=== PATIENT | male | born 1945 | race American Indian/Alaskan Native ===

== ENCOUNTER 2022-04-20 19:35 | Inpatient (IN) | payer MEDICARE ==
[2022-04-20 20:28] LABS: Basophils # (Auto) 0.1 K/mm3 (0.0-0.1); Basophils % (Auto) 1.7 % (0.0-1.8); Eosinophils # (Auto) 0.1 K/mm3 (0.0-0.4); Eosinophils % (Auto) 1.1 % (0.0-4.3); Hematocrit 34.4 % (35.5-45.6); Hemoglobin 11.7 gm/dl (11.8-15.2); Lymphocytes # (Auto) 0.6 K/mm3 (1.2-5.4); Lymphocytes % (Auto) 7.3 % (13.4-35.0); Mean Corpuscular HGB Conc 34 % (32-34); Mean Corpuscular Volume 109 fl (84-94); Monocytes # (Auto) 0.5 K/mm3 (0.0-0.8); Monocytes % (Auto) 5.6 % (0.0-7.3); Red Blood Count 3.17 M/mm3 (3.65-5.03); Red Cell Distribution Width 18.2 % (13.2-15.2)
--- NOTE | 2022-04-20 20:35 | XRay Report ---
CHEST 2 VIEWS INDICATION / CLINICAL INFORMATION: Chest Pain. COMPARISON: None available. FINDINGS: SUPPORT DEVICES: None. HEART / MEDIASTINUM: Cardiomegaly with normal pulmonary vascularity LUNGS / PLEURA: No significant pulmonary or pleural abnormality. No pneumothorax. ADDITIONAL FINDINGS: No significant additional findings. IMPRESSION: 1. Cardiomegaly without CHF Signer Name: Olivier Rivera MD Signed: 04/20/2022 8:31 PM Workstation Name: [id number]
[2022-04-20 20:44] LABS: Albumin 3.6 g/dL (3.9-5); Calcium 9.3 mg/dL (8.4-10.2)
[2022-04-20 20:49] LABS: Platelet Count 94 K/mm3 (140-440)
--- NOTE | 2022-04-21 13:45 | Emergency Department Report ---
ED Chest Pain HPI - General Chief Complaint: Chest Pain Stated Complaint: CHEST PAIN/SOB Source: patient Mode of arrival: Ambulatory Limitations: No Limitations - History of Present Illness Initial Comments: 77-year-old male with a history of atrial fib, hypertension, diabetes, COPD, chronic hiccups, presents to the emergency department with chest pain shortness of breath. " I feel like I am drowning in my chest" patient reports symptom has been going on for 1 week progressively worse. Describes sharp pain across his chest that radiates to his left arm causing numbness and tingling in his left arm. Reports short of breath even with the mildest activities such as tying his shoes. His symptoms associated with productive cough, swelling of his lower extremity headache, dizziness, states sometimes he feels like he is off balance. He denies wheezing, denies any recent travel or sick contacts. Symptoms has been so worse that has been "making him very afraid". His quality assurance analyst is at [facility] Doctor "los" Complaint: chest pain -: Gradual Onset: during exertion Pain Location: substernal, left chest, right chest Pain Radiation: LUE Severity: moderate Severity scale (0 -10): 5 Quality: tightness Consistency: intermittent Improves With: nothing Worsens With: exertion, movement Other Symptoms: cough, leg swelling, palpitations Treatments Prior to Arrival: none - Related Data Home Medications Medication Instructions Recorded Confirmed Last Taken Lantus Solostar 15 units SUB-Q PRN PRN 12/24/15 04/22/22 12/27/15 22:00 Lisinopril/Hydrochlorothiazide 20 mg PO BID 12/24/15 04/22/22 12/28/15 06:00 Methotrexate 2.5 mg PO QWEEK 12/24/15 04/22/22 12/27/15 09:00 NexIUM 22.3 mg PO DAILY 12/24/15 04/22/22 12/27/15 09:00 Pioglitazone 15 mg PO DAILY 12/24/15 04/22/22 12/27/15 09:00 Simvastatin 40 mg PO DAILY 12/24/15 04/22/22 12/27/15 09:00 chlorproMAZINE 25 mg PO TID 12/24/15 04/22/22 Unknown metFORMIN 1,000 mg PO BID 12/24/15 04/22/22 12/27/15 09:00 Aspirin EC [Halfprin EC] 81 mg PO QDAY 12/26/15 04/22/22 12/24/15 Previous Rx's Medication Instructions Recorded Last Taken Type Nystatin [Nystatin SUSP] 10 ml PO QID #250 ml 12/28/15 Unknown Rx Allergies Allergy/AdvReac Type Severity Reaction Status Date / Time Penicillins Allergy Severe Anaphylaxis Verified 04/22/22 16:14 Heart Score - HEART Score History: Moderately suspicious EKG: Non-specific Age: > 65 Risk factors: > 3 risk factors or hx of atherosclerotic disease Troponin: < normal limit HEART Score: 6 - EKG Read Time Time EKG Completed: 20:04 EKG Read Time: 20:06 - Critical Actions Critical Actions: 4-6 pts:12-16.6% risk of adverse cardiac event. Should be admitted ED Review of Systems ROS: Stated complaint: CHEST PAIN/SOB Other details as noted in HPI Constitutional: denies: no symptoms reported Respiratory: cough, orthopnea, shortness of breath, SOB with exertion, SOB at rest. denies: wheezing Cardiovascular: chest pain, dyspnea on exertion, edema Genitourinary: denies: as per HPI Neurological: headache, numbness ED Past Medical Hx - Past Medical History Previous Medical History?: Yes Hx Hypertension: Yes (CONTROLLED) Hx Heart Attack/AMI: No Hx Diabetes: Yes Hx GERD: Yes Hx Renal Disease: No Hx Asthma: No Hx HIV: No - Surgical History Past Surgical History?: No - Social History Smoking Status: Unknown if ever smoked - Medications Home Medications: Home Medications Medication Instructions Recorded Confirmed Last Taken Type Lantus Solostar 15 units SUB-Q PRN PRN 12/24/15 04/22/22 12/27/15 22:00 History Lisinopril/Hydrochlorothiazide 20 mg PO BID 12/24/15 04/22/22 12/28/15 06:00 History Methotrexate 2.5 mg PO QWEEK 12/24/15 04/22/22 12/27/15 09:00 History NexIUM 22.3 mg PO DAILY 12/24/15 04/22/22 12/27/15 09:00 History Pioglitazone 15 mg PO DAILY 12/24/15 04/22/22 12/27/15 09:00 History Simvastatin 40 mg PO DAILY 12/24/15 04/22/22 12/27/15 09:00 History chlorproMAZINE 25 mg PO TID 12/24/15 04/22/22 Unknown History metFORMIN 1,000 mg PO BID 12/24/15 04/22/22 12/27/15 09:00 History Aspirin EC [Halfprin EC] 81 mg PO QDAY 12/26/15 04/22/22 12/24/15 History Nystatin [Nystatin SUSP] 10 ml PO QID #250 ml 12/28/15 04/22/22 Unknown Rx ED Physical Exam - General Limitations: No Limitations General appearance: alert, in no apparent distress - Eye Eye exam: Present: normal appearance - ENT ENT exam: Present: normal exam, mucous membranes moist - Neck Neck exam: Present: normal inspection - Respiratory Respiratory exam: Present: decreased breath sounds. Absent: wheezes, chest wall tenderness - GI/Abdominal GI/Abdominal exam: Present: distended. Absent: tenderness - Extremities Exam Extremities exam: Present: tenderness, pedal edema - Neurological Exam Neurological exam: Present: alert, oriented X3 - Psychiatric Psychiatric exam: Present: normal affect, normal mood - Skin Skin exam: Present: warm, dry, intact ED Course Vital Signs 04/20/22 04/20/22 04/21/22 19:38 19:40 05:26 Temperature 100.0 F H 100 F H Pulse Rate 68 68 67 Respiratory 18 18 18 Rate Blood Pressure 180/85 Blood Pressure 180/85 144/70 [Right] O2 Sat by Pulse 95 93 95 Oximetry 04/21/22 04/21/22 04/21/22 23:03 23:21 23:37 Temperature 98.4 F Pulse Rate 71 66 64 Respiratory 16 20 Rate Blood Pressure 174/85 Blood Pressure 142/82 [Right] O2 Sat by Pulse 98 94 Oximetry 04/21/22 04/22/22 04/22/22 23:45 03:44 07:00 Temperature 98.3 F Pulse Rate 71 76 Respiratory 18 Rate Blood Pressure 155/80 Blood Pressure [Right] O2 Sat by Pulse 98 93 Oximetry 04/22/22 08:11 Temperature 99.0 F Pulse Rate 65 Respiratory 18 Rate Blood Pressure 153/84 Blood Pressure [Right] O2 Sat by Pulse 94 Oximetry - Reevaluation(s) Reevaluation #1: 04/21/22 14:35- Spoke with the hospitalist Dr. Fuller, "accept patient accepted" [id number] spoke with the quality assurance analyst Dr. Francois who would call Dr. Keys who is on-call for patient's quality assurance analyst with [facility] ED Medical Decision Making - Lab Data Result diagrams: 04/22/22 07:58 04/22/22 07:58 - EKG Data -: EKG Interpreted by Me EKG shows normal: sinus rhythm Rate: normal (68) - EKG Data When compared to previous EKG there are: no significant change Interpretation: other (Prolonged NE interval left bundle branch block) - Medical Decision Making 77-year-old male with a history of atrial fib, hypertension, diabetes, COPD, chronic hiccups, presents to the emergency department with chest pain shortness of breath. " I feel like I am drowning in my chest" patient reports symptom has been going on for 1 week progressively worse. Describes sharp pain across his chest that radiates to his left arm causing numbness and tingling in his left arm. Reports short of breath even with the mildest activities such as tying his shoes. His serial troponin has been negative, however heart score is of greater than 4, Based on patient's history. I consulted his quality assurance analyst and spoke to Dr. Keys who was on-call, recommended admit patient. Spoke with the hospitalist who accepted patient. I also updated patient's regarding the plan for admission and he is very pleased. Critical care attestation.: If time is entered above; I have spent that time in minutes in the direct care of this critically ill patient, excluding procedure time. ED Disposition Clinical Impression: Intractable hiccoughs, Chest pain, Shortness of breath, MICHAEL (acute kidney injury), Diabetes mellitus type 2 in obese Disposition: ADMITTED INPATIENT Is pt being admited?: Yes Does the pt Need Aspirin: No Condition: Stable
--- NOTE | 2022-04-21 20:12 | History and Physical Report ---
History of Present Illness Date of examination: 04/21/22 Date of admission: 04/21/2025 Chief complaint: Chest pain and shortness of breath for 1 week History of present illness: 77-year-old male with history of atrial fibrillation hypertension diabetes COPD comes to the emergency department because of shortness of breath and chest pain. Shortness of breath for 1 week. Chest pain off and on for 1 week. Orthopnea present. No fever or chills. Patient also has a history of rheumatoid arthritis hypertension hyperlipidemia and type 2 diabetes. Exercise is a exace rbating factor. Rest is a relieving factor. Heart Score - HEART Score History: Moderately suspicious Age: > 65 Risk factors: > 3 risk factors or hx of atherosclerotic disease Troponin: < normal limit - Critical Actions Critical Actions: 4-6 pts:12-16.6% risk of adverse cardiac event. Should be admitted - Past Medical History --Previous Medical History?: Yes --Hypertension: Yes (CONTROLLED) --Diabetes: Yes --GERD: Yes - Surgical History --Past Surgical History?: No - Social History --Smoking Status: Unknown if ever smoked - Medications Home Medications: Home Medications Medication Instructions Recorded Confirmed Last Taken Type Lantus Solostar 15 units SUB-Q PRN PRN 12/24/15 12/28/15 12/27/15 22:00 History Lisinopril/Hydrochlorothiazide 20 mg PO BID 12/24/15 12/28/15 12/28/15 06:00 History Methotrexate 2.5 mg PO QWEEK 12/24/15 12/28/15 12/27/15 09:00 History NexIUM 22.3 mg PO DAILY 12/24/15 12/28/15 12/27/15 09:00 History Pioglitazone 15 mg PO DAILY 12/24/15 12/28/15 12/27/15 09:00 History Simvastatin 40 mg PO DAILY 12/24/15 12/28/15 12/27/15 09:00 History chlorproMAZINE 25 mg PO TID 12/24/15 12/24/15 Unknown History metFORMIN 1,000 mg PO BID 12/24/15 12/28/15 12/27/15 09:00 History Aspirin EC [Halfprin EC] 81 mg PO QDAY 12/26/15 12/26/15 12/24/15 History Nystatin [Nystatin SUSP] 10 ml PO QID #250 ml 12/28/15 Unknown Rx Review of Systems ROS: Stated complaint: CHEST PAIN/SOB Other details as noted in HPI Constitutional: denies: no symptoms reported Respiratory: cough, orthopnea, shortness of breath, SOB with exertion, SOB at rest. denies: wheezing Cardiovascular: chest pain, dyspnea on exertion, edema Genitourinary: denies: as per HPI Neurological: headache, numbness Medications and Allergies Allergies Allergy/AdvReac Type Severity Reaction Status Date / Time Penicillins AdvReac Severe Anaphylaxis Verified 12/24/15 12:16 Home Medications Medication Instructions Recorded Confirmed Last Taken Type Lantus Solostar 15 units SUB-Q PRN PRN 12/24/15 12/28/15 12/27/15 22:00 History Lisinopril/Hydrochlorothiazide 20 mg PO BID 12/24/15 12/28/15 12/28/15 06:00 History Methotrexate 2.5 mg PO QWEEK 12/24/15 12/28/15 12/27/15 09:00 History NexIUM 22.3 mg PO DAILY 12/24/15 12/28/15 12/27/15 09:00 History Pioglitazone 15 mg PO DAILY 12/24/15 12/28/15 12/27/15 09:00 History Simvastatin 40 mg PO DAILY 12/24/15 12/28/15 12/27/15 09:00 History chlorproMAZINE 25 mg PO TID 12/24/15 12/24/15 Unknown History metFORMIN 1,000 mg PO BID 12/24/15 12/28/15 12/27/15 09:00 History Aspirin EC [Halfprin EC] 81 mg PO QDAY 12/26/15 12/26/15 12/24/15 History Nystatin [Nystatin SUSP] 10 ml PO QID #250 ml 12/28/15 Unknown Rx Exam - Constitutional Vitals: Temp Pulse Resp BP Pulse Ox 100 F H 67 18 144/70 95 04/20/22 19:40 04/21/22 05:26 04/21/22 05:26 04/21/22 05:26 04/21/22 05:26 General appearance: Present: no acute distress, well-nourished - EENT Eyes: Present: PERRL ENT: hearing intact, clear oral mucosa - Neck Neck: Present: supple, normal ROM - Respiratory Respiratory effort: normal Respiratory: bilateral: CTA, rales (Scattered) - Cardiovascular Heart rate: 78 Rhythm: regular Heart Sounds: Present: S1 & S2. Absent: rub, click - Extremities Extremities: pulses symmetrical, No edema Peripheral Pulses: within normal limits - Abdominal General gastrointestinal: Present: soft, non-tender, non-distended, normal bowel sounds Male genitourinary: Present: normal - Integumentary Integumentary: Present: clear, warm, dry - Musculoskeletal Musculoskeletal: gait normal, strength equal bilaterally - Psychiatric Psychiatric: appropriate mood/affect, intact judgment & insight - Neurologic Neurologic: CNII-XII intact, moves all extremities HEART Score - HEART Score Age: > 65 Risk factors: > 3 risk factors or hx of atherosclerotic disease Troponin: Troponin T < 0.010 ng/mL (0.00-0.029) 04/21/22 04:42 Troponin: < normal limit - Critical Actions Critical Actions: 4-6 pts:12-16.6% risk of adverse cardiac event. Should be admitted Results - Labs CBC & Chem 7: 04/20/22 19:57 04/20/22 19:57 Labs: Laboratory Last Values WBC 8.4 K/mm3 (4.5-11.0) 04/20/22 19:57 RBC 3.17 M/mm3 (3.65-5.03) L 04/20/22 19:57 Hgb 11.7 gm/dl (11.8-15.2) L 04/20/22 19:57 Hct 34.4 % (35.5-45.6) L 04/20/22 19:57 MCV 109 fl (84-94) H 04/20/22 19:57 MCH 37 pg (28-32) H 04/20/22 19:57 MCHC 34 % (32-34) 04/20/22 19:57 RDW 18.2 % (13.2-15.2) H 04/20/22 19:57 Plt Count 94 K/mm3 (140-440) L 04/20/22 19:57 Lymph % (Auto) 7.3 % (13.4-35.0) L 04/20/22 19:57 Price % (Auto) 5.6 % (0.0-7.3) 04/20/22 19:57 Eos % (Auto) 1.1 % (0.0-4.3) 04/20/22 19:57 Baso % (Auto) 1.7 % (0.0-1.8) 04/20/22 19:57 Lymph # (Auto) 0.6 K/mm3 (1.2-5.4) L 04/20/22 19:57 Price # (Auto) 0.5 K/mm3 (0.0-0.8) 04/20/22 19:57 Eos # (Auto) 0.1 K/mm3 (0.0-0.4) 04/20/22 19:57 Baso # (Auto) 0.1 K/mm3 (0.0-0.1) 04/20/22 19:57 Seg Neutrophils % 84.3 % (40.0-70.0) H 04/20/22 19:57 Seg Neutrophils # 7.1 K/mm3 (1.8-7.7) 04/20/22 19:57 Sodium 138 mmol/L (137-145) 04/20/22 19:57 Potassium 4.4 mmol/L (3.6-5.0) 04/20/22 19:57 Chloride 96.7 mmol/L (98-107) L 04/20/22 19:57 Carbon Dioxide 30 mmol/L (22-30) 04/20/22 19:57 Anion Gap 16 mmol/L 04/20/22 19:57 BUN 15 mg/dL (9-20) 04/20/22 19:57 Creatinine 1.5 mg/dL (0.8-1.3) H 04/20/22 19:57 Estimated GFR 55 ml/min 04/20/22 19:57 BUN/Creatinine Ratio 10 % 04/20/22 19:57 Glucose 99 mg/dL (75-100) 04/20/22 19:57 Calcium 9.3 mg/dL (8.4-10.2) 04/20/22 19:57 Total Bilirubin 0.60 mg/dL (0.1-1.2) 04/20/22 19:57 AST 121 units/L (5-40) H 04/20/22 19:57 ALT 50 units/L (7-56) 04/20/22 19:57 Alkaline Phosphatase 154 units/L (35-129) H 04/20/22 19:57 Troponin T < 0.010 ng/mL (0.00-0.029) 04/21/22 04:42 NT-Pro-B Natriuret Pep 1068 pg/mL (0-900) H 04/21/22 14:15 Total Protein 7.4 g/dL (6.3-8.2) 04/20/22 19:57 Albumin 3.6 g/dL (3.9-5) L 04/20/22 19:57 Albumin/Globulin Ratio 0.9 % 04/20/22 19:57 Cardiac Enzymes 04/21/22 Range/Units 23:36 Troponin T 0.015 (0.00-0.029) ng/mL - Imaging and Cardiology EKG: report reviewed (Sinus rhythm no acute ST-T wave changes) Chest x-ray: report reviewed Imaging and Cardiology: Chest x-ray Cardiomegaly without CHF Assessment and Plan Advance Directives: Yes (Full code) VTE prophylaxis?: Chemical Plan of care discussed with patient/family: Yes - Patient Problems (1) Acute coronary syndrome Current Visit: Yes Status: Acute Plan to address problem: Serial troponins Lexiscan in the morning Cardiology consult requested (2) Acute exacerbation of CHF (congestive heart failure) Current Visit: Yes Status: Acute Qualifiers: Heart failure type: combined systolic and diastolic Qualified Code(s): I50.43 - Acute on chronic combined systolic (congestive) and diastolic (congestive) heart failure Plan to address problem: IV Lasix for now Echocardiogram for ejection fraction Daily weights Daily intake and output (3) IDDM (insulin dependent diabetes mellitus) Current Visit: Yes Status: Chronic Plan to address problem: Lantus and coverage Check hemoglobin A1c (4) Hypertension Current Visit: Yes Status: Chronic Qualifiers: Hypertension type: primary hypertension Qualified Code(s): I10 - Essential (primary) hypertension Plan to address problem: Continue antihypertensives (5) Rheumatoid arthritis Current Visit: Yes Status: Chronic Qualifiers: Rheumatoid arthritis location: unspecified site Plan to address problem: Continue methotrexate once a week and folic acid (6) Hyperlipidemia Current Visit: Yes Status: Chronic Qualifiers: Hyperlipidemia type: unspecified Qualified Code(s): E78.5 - Hyperlipidemia, unspecified Plan to address problem: Continue statins (7) DVT prophylaxis Current Visit: Yes Status: Acute Plan to address problem: On anticoagulation GI prophylaxis (8) Advance care planning Current Visit: Yes Status: Acute Plan to address problem: Disease education conducted, care plan discussed, diagnosis discussed and prognosis discussed. Patient acknowledges understanding with care plan. +30 minutes.
[2022-04-21] MEDS ORDERED: LANTUS 15 UNIT SUB-Q PRN (20:14)
[2022-04-21] MEDS ORDERED: ACETAMINOPHEN 325 MG TAB PO PRN (20:21)
[2022-04-21] MEDS ORDERED: oxyCODONE /ACETAMINOPHEN 5-325MG TAB PO PRN (20:21)
[2022-04-21] MEDS ORDERED: ONDANSETRON 4 MG/2 ML INJ IV PRN (20:21)
[2022-04-21] MEDS ORDERED: METOCLOPRAMIDE 10 MG/2 ML INJ IV PRN (20:21)
[2022-04-21] MEDS ORDERED: MORPHINE 2 MG/1 ML INJ IV PRN (20:21)
[2022-04-21] MEDS ORDERED: INSULIN LISPRO 100 UNIT/ML SUB-Q ONE (21:00)
[2022-04-21] MEDS ORDERED: HYDROCHLOROTHIAZIDE PO SCH (22:00)
[2022-04-21] MEDS ORDERED: FAMOTIDINE 20 MG TAB PO SCH (22:00)
[2022-04-21] MEDS ORDERED: LISINOPRIL PO SCH (22:00)
[2022-04-21] MEDS: POTASSIUM CHLORIDE ER 20 MEQ TAB PO SCH (22:24)
[2022-04-21] MEDS: ASPIRIN EC 81 MG TAB PO SCH (22:24)
[2022-04-21] MEDS: FUROSEMIDE 40 MG/4 ML INJ IV SCH (22:24)
[2022-04-22] MEDS: HEPARIN 5,000 UNIT/1 ML VIAL SUB-Q SCH ×3 (00:11→21:53)
[2022-04-22] MEDS: PRAVASTATIN 80 MG TAB PO SCH ×2 (00:11→09:34)
[2022-04-22] MEDS: FAMOTIDINE 20 MG TAB PO SCH ×2 (00:12→09:34)
[2022-04-22] MEDS ORDERED: REGADENOSON 0.4 MG/5 ML INJ IV ONE (07:04)
[2022-04-22 09:04] LABS: Hematocrit 36.4 % (35.5-45.6); Hemoglobin 11.7 gm/dl (11.8-15.2); Mean Corpuscular HGB Conc 32 % (32-34); Red Cell Distribution Width 18.5 % (13.2-15.2)
[2022-04-22 09:05] LABS: Mean Corpuscular Volume 110 fl (84-94); Platelet Count 84 K/mm3 (140-440)
[2022-04-22 09:26] LABS: Alanine Aminotransferase 40 units/L (7-56); Albumin 3.2 g/dL (3.9-5); BUN/Creatinine Ratio 11; Blood Urea Nitrogen 13 mg/dL (9-20); Calcium 9.2 mg/dL (8.4-10.2); Hemolysis Index 8
[2022-04-22] MEDS: metFORMIN 500 MG TAB PO SCH ×2 (09:33→16:58)
[2022-04-22] MEDS: chlorproMAZINE 25 MG TAB PO SCH ×3 (09:33→21:54)
[2022-04-22] MEDS: ASPIRIN EC 81 MG TAB PO SCH (09:34)
[2022-04-22] MEDS ORDERED: PIOGLITAZONE 15 MG PO SCH (10:00)
[2022-04-22 10:30] LABS: Basophils % (Manual) 0 % (0.0-1.8); Eosinophils % (Manual) 0 % (0.0-4.3); Total Cells Counted 100
[2022-04-22 10:32] LABS: Anisocytosis 1+; Hypersegmented Neutrophils Few; Hypochromasia 1+; Large Platelets Rare; Macrocytosis 1+; Ovalocytes Rare; Platelet Estimate Consistent w Auto; Poikilocytosis 1+; Target Cells Few
--- NOTE | 2022-04-22 11:10 | Consultation ---
History of Present Illness Consult date: 04/22/22 Consult reason: chest pain History of present illness: Patient is a 77-year-old man who presented to the hospital with chest pain. He describes poorly characterized nonexertional chest pain which was mostly localized to the right chest. There was no associated symptoms, no shortness of breath or palpitations. He has no lower extremity edema. He has recently been experiencing persistent cough. At this time, he is awaiting the results of a COVID-19 test. The patient's cardiac history is notable for paroxysmal atrial fibrillation, on rhythm control management and Xarelto for chronic oral anticoagulation. Serial left ventricular function assessments have documented normal ejection fraction 55 to 60%, most recently December last year. He has diabetes, hypertension and chronic lung disease. Work-up. In the hospital, EKG is a sinus rhythm with left bundle branch block. The left bundle branch block appears chronic. Chest x-ray showed a borderline cardiomegaly, but no significant interstitial edema. The serial troponin levels were normal x3. Past History Past Medical History: atrial fib, COPD, diabetes, hypertension Medications and Allergies Allergies Allergy/AdvReac Type Severity Reaction Status Date / Time Penicillins AdvReac Severe Anaphylaxis Verified 12/24/15 12:16 Home Medications Medication Instructions Recorded Confirmed Last Taken Type Lantus Solostar 15 units SUB-Q PRN PRN 12/24/15 12/28/15 12/27/15 22:00 History Lisinopril/Hydrochlorothiazide 20 mg PO BID 12/24/15 12/28/15 12/28/15 06:00 History Methotrexate 2.5 mg PO QWEEK 12/24/15 12/28/15 12/27/15 09:00 History NexIUM 22.3 mg PO DAILY 12/24/15 12/28/15 12/27/15 09:00 History Pioglitazone 15 mg PO DAILY 12/24/15 12/28/15 12/27/15 09:00 History Simvastatin 40 mg PO DAILY 12/24/15 12/28/15 12/27/15 09:00 History chlorproMAZINE 25 mg PO TID 12/24/15 12/24/15 Unknown History metFORMIN 1,000 mg PO BID 12/24/15 12/28/15 12/27/15 09:00 History Aspirin EC [Halfprin EC] 81 mg PO QDAY 12/26/15 12/26/15 12/24/15 History Nystatin [Nystatin SUSP] 10 ml PO QID #250 ml 12/28/15 Unknown Rx Active Meds: Active Medications Acetaminophen (Acetaminophen 325 Mg Tab) 650 mg PO Q4H PRN PRN Reason: Pain MILD(1-3)/Fever >100.5/RICKETTS Aspirin (Aspirin Ec 81 Mg Tab) 81 mg PO QDAY [facility] Last Admin: 04/22/22 09:34 Dose: 81 mg Chlorpromazine HCl (Chlorpromazine 25 Mg Tab) 25 mg PO TID [facility] Last Admin: 04/22/22 09:33 Dose: 25 mg Famotidine (Famotidine 20 Mg Tab) 20 mg PO QDAY [facility] Last Admin: 04/22/22 09:34 Dose: 20 mg Furosemide (Furosemide 40 Mg/4 Ml Inj) 40 mg IV Q24H [facility] Last Admin: 04/21/22 22:24 Dose: 40 mg Heparin Sodium (Porcine) (Heparin 5,000 Unit/1 Ml Vial) 5,000 unit SUB-Q Q12HR [facility] Last Admin: 04/22/22 09:34 Dose: 5,000 unit Metformin HCl (Metformin 500 Mg Tab) 1,000 mg PO BIDDIAB [facility] Last Admin: 04/22/22 09:33 Dose: 1,000 mg Methotrexate (Methotrexate 2.5 Mg Tab (Dose Weekly Only)) 10 mg PO Tu [facility] Metoclopramide HCl (Metoclopramide 10 Mg/2 Ml Inj) 10 mg IV Q6H PRN PRN Reason: Nausea And Vomiting Miscellaneous Medication (Lantus Solostar) 15 units SUB-Q PRN PRN PRN Reason: Hyperglycemia Miscellaneous Medication (Lisinopril/Hydrochlorothiazide) 20 mg PO BID [facility] Miscellaneous Medication (Pioglitazone) 15 mg PO DAILY [facility] Morphine Sulfate (Morphine 2 Mg/1 Ml Inj) 2 mg IV Q4H PRN PRN Reason: Pain, Moderate (4-6) Ondansetron HCl (Ondansetron 4 Mg/2 Ml Inj) 4 mg IV Q8H PRN PRN Reason: Nausea And Vomiting Oxycodone/Acetaminophen (Oxycodone /Acetaminophen 5-325mg Tab) 1 tab PO Q6H PRN PRN Reason: Pain, Moderate (4-6) Potassium Chloride (Potassium Chloride Er 20 Meq Tab) 20 meq PO Q24H [facility] Last Admin: 04/21/22 22:24 Dose: 20 meq Pravastatin Sodium (Pravastatin 80 Mg Tab) 80 mg PO DAILY [facility] Last Admin: 04/22/22 09:34 Dose: 80 mg Sodium Chloride (Sodium Chloride 0.9% 10 Ml Flush Syringe) 10 ml IV BID [facility] Last Admin: 04/22/22 00:12 Dose: 10 ml Sodium Chloride (Sodium Chloride 0.9% 10 Ml Flush Syringe) 10 ml IV PRN PRN PRN Reason: LINE FLUSH Review of Systems Cardiovascular: chest pain, shortness of breath, no orthopnea, no palpitations, no rapid/irregular heart beat, no edema, no syncope, no lightheadedness Physical Examination Vital Signs Temp Pulse Resp BP Pulse Ox 100.0 F H 68 18 180/85 95 04/20/22 19:38 04/20/22 19:38 04/20/22 19:38 04/20/22 19:38 04/20/22 19:38 General appearance: no acute distress HEENT: Positive: PERRL Neck: Positive: neck supple Cardiac: Positive: Reg Rate and Rhythm Lungs: Positive: Decreased Breath Sounds Neuro: Positive: Grossly Intact Abdomen: Positive: Soft Male genitourinary: Positive: deferred Skin: Positive: Clear Extremities: Absent: edema Results 04/22/22 07:58 04/22/22 07:58 Cardiac Enzymes 04/22/22 Range/Units 07:58 AST 92 H (5-40) units/L CBC 04/22/22 Range/Units 07:58 WBC 6.5 (4.5-11.0) K/mm3 RBC 3.30 L (3.65-5.03) M/mm3 Hgb 11.7 L (11.8-15.2) gm/dl Hct 36.4 (35.5-45.6) % Plt Count 84 L (140-440) K/mm3 Comprehensive Metabolic Panel 04/22/22 Range/Units 07:58 Sodium 141 (137-145) mmol/L Potassium 4.2 (3.6-5.0) mmol/L Chloride 102.2 (98-107) mmol/L Carbon Dioxide 28 (22-30) mmol/L BUN 13 (9-20) mg/dL Creatinine 1.2 (0.8-1.3) mg/dL Glucose 76 (75-100) mg/dL Calcium 9.2 (8.4-10.2) mg/dL AST 92 H (5-40) units/L ALT 40 (7-56) units/L Alkaline Phosphatase 151 H (35-129) units/L Total Protein 7.0 (6.3-8.2) g/dL Albumin 3.2 L (3.9-5) g/dL EKG interpretations - Telemetry EKG Rhythm: Sinus Rhythm (With chronic left bundle branch block) Assessment and Plan - Patient Problems (1) Chest pain Current Visit: Yes Status: Acute Plan to address problem: Chest pain is atypical, serial cardiac enzymes are normal. His EKG is abnormal with chronic left bundle branch block. He is scheduled for a Lexiscan thallium stress test once his COVID 19 test is reported as negative. (2) Paroxysmal atrial fibrillation Current Visit: Yes Status: Acute Plan to address problem: Patient is stable currently in sinus rhythm. Patient is reported on his outpatient records to be on long-term oral anticoagulation with Xarelto.
--- NOTE | 2022-04-22 12:33 | Electrocardiograph Report ---
[facility] Test Date: 2022-04-20 Test Time: 20:04:04 Pat Name: CONNIE HOGAN Department: Room: A466 Gender: M Production Support Consultant: WENDY : 1945 Requested By: ED DOC Order Number: [id number] Reading MD: Brendan Keys Measurements Intervals [place] Rate: 68 P: 264 AK: 247 QRS: 24 QRSD: 122 T: 122 QT: 447 QTc: 475 Interpretive Statements Very poor quality ECG Sinus or ectopic atrial rhythm Nonspecific intraventricular conduction delay No previous ECG available for comparison Electronically Signed On 04-22-2022 12:33:18 EDT by Brendan Keys
[2022-04-22] MEDS: metHOTREXate 2.5 MG TAB (DOSE WEEKLY ONLY) PO SCH ×2 (14:29→17:07)
[2022-04-22] MEDS: FUROSEMIDE 40 MG/4 ML INJ IV SCH (21:53)
[2022-04-22] MEDS: POTASSIUM CHLORIDE ER 20 MEQ TAB PO SCH (21:59)
--- NOTE | 2022-04-23 07:36 | Progress Note ---
Assessment and Plan - Patient Problems (1) Acute coronary syndrome Current Visit: Yes Status: Acute Plan to address problem: Serial troponins Lexiscan in the morning Cardiology consult requested (2) Acute exacerbation of CHF (congestive heart failure) Current Visit: Yes Status: Acute Qualifiers: Heart failure type: combined systolic and diastolic Qualified Code(s): I50.43 - Acute on chronic combined systolic (congestive) and diastolic (congestive) heart failure Plan to address problem: IV Lasix for now Echocardiogram for ejection fraction Daily weights Daily intake and output (3) IDDM (insulin dependent diabetes mellitus) Current Visit: Yes Status: Chronic Plan to address problem: Lantus and coverage Check hemoglobin A1c (4) Hypertension Current Visit: Yes Status: Chronic Qualifiers: Hypertension type: primary hypertension Qualified Code(s): I10 - Essential (primary) hypertension Plan to address problem: Continue antihypertensives (5) Rheumatoid arthritis Current Visit: Yes Status: Chronic Qualifiers: Rheumatoid arthritis location: unspecified site Plan to address problem: Continue methotrexate once a week and folic acid (6) Hyperlipidemia Current Visit: Yes Status: Chronic Qualifiers: Hyperlipidemia type: unspecified Qualified Code(s): E78.5 - Hyperlipidemia, unspecified Plan to address problem: Continue statins (7) DVT prophylaxis Current Visit: Yes Status: Acute Plan to address problem: On anticoagulation GI prophylaxis (8) Advance care planning Current Visit: Yes Status: Acute Plan to address problem: Disease education conducted, care plan discussed, diagnosis discussed and prognosis discussed. Patient acknowledges understanding with care plan. +30 minutes. Subjective Date of service: 04/22/22 Principal diagnosis: Afib with rvr Interval history: 77-year-old male with history of atrial fibrillation hypertension diabetes COPD comes to the emergency department because of shortness of breath and chest pain. Shortness of breath for 1 week. Chest pain off and on for 1 week. Orthopnea present. No fever or chills. Patient also has a history of rheumatoid arthritis hypertension hyperlipidemia and type 2 diabetes. Exercise is a exacerbating factor. Rest is a relieving factor. 04/23/2022 Rate improved Continue amiodarone Add Xarelto Objective - Constitutional Vitals: Vital Signs - 12hr 04/22/22 04/22/22 21:16 23:00 Temperature 98.7 F Pulse Rate 53 L Respiratory 18 24 Rate Blood Pressure 108/59 O2 Sat by Pulse 97 94 Oximetry General appearance: Present: no acute distress, well-nourished - EENT Eyes: PERRL, EOM intact ENT: hearing intact, clear oral mucosa Ears: bilateral: normal - Neck Neck: supple, normal ROM - Respiratory Respiratory effort: normal Respiratory: bilateral: CTA - Breasts Breasts: normal - Cardiovascular Heart rate: 78 Rhythm: regular Heart Sounds: Present: S1 & S2. Absent: gallop, rub Extremities: pulses intact, No edema, normal color, Full ROM - Gastrointestinal General gastrointestinal: Present: soft, non-tender, non-distended, normal bowel sounds - Genitourinary Male genitourinary: normal - Integumentary Integumentary: clear, warm, dry - Musculoskeletal Musculoskeletal: 1, strength equal bilaterally - Neurologic Neurologic: moves all extremities - Psychiatric Psychiatric: memory intact, appropriate mood/affect, intact judgment & insight - Labs CBC & Chem 7: 04/22/22 07:58 04/22/22 07:58 Labs: Abnormal lab results 04/22/22 04/22/22 04/22/22 Range/Units 07:58 07:58 10:55 RBC 3.30 L (3.65-5.03) M/mm3 Hgb 11.7 L (11.8-15.2) gm/dl MCV 110 H (84-94) fl MCH 36 H (28-32) pg RDW 18.5 H (13.2-15.2) % Plt Count 84 L (140-440) K/mm3 Seg Neuts % (Manual) 87.0 H (40.0-70.0) % Lymphocytes % (Manual) 4.0 L (13.4-35.0) % Monocytes % (Manual) 9.0 H (0.0-7.3) % Lymphocytes # (Manual) 0.3 L (1.2-5.4) K/mm3 POC Glucose (70-105) mg/dL AST 92 H (5-40) units/L Alkaline Phosphatase 151 H (35-129) units/L Albumin 3.2 L (3.9-5) g/dL SARS-CoV-2 (PCR) Positive A (Negative) 04/22/22 Range/Units 18:09 RBC (3.65-5.03) M/mm3 Hgb (11.8-15.2) gm/dl MCV (84-94) fl MCH (28-32) pg RDW (13.2-15.2) % Plt Count (140-440) K/mm3 Seg Neuts % (Manual) (40.0-70.0) % Lymphocytes % (Manual) (13.4-35.0) % Monocytes % (Manual) (0.0-7.3) % Lymphocytes # (Manual) (1.2-5.4) K/mm3 POC Glucose 140 H (70-105) mg/dL AST (5-40) units/L Alkaline Phosphatase (35-129) units/L Albumin (3.9-5) g/dL SARS-CoV-2 (PCR) (Negative) HEART Score - HEART Score EKG: Non-specific Age: > 65 Risk factors: > 3 risk factors or hx of atherosclerotic disease Troponin: Troponin T 0.016 ng/mL (0.00-0.029) 04/22/22 09:58 Troponin: < normal limit - Critical Actions Critical Actions: 4-6 pts:12-16.6% risk of adverse cardiac event. Should be admitted
[2022-04-23] MEDS: chlorproMAZINE 25 MG TAB PO SCH (09:20)
[2022-04-23] MEDS: FAMOTIDINE 20 MG TAB PO SCH (09:21)
[2022-04-23] MEDS: PRAVASTATIN 80 MG TAB PO SCH (09:21)
[2022-04-23] MEDS: ASPIRIN EC 81 MG TAB PO SCH (09:21)
[2022-04-23] MEDS: metFORMIN 500 MG TAB PO SCH ×2 (09:21→17:04)
[2022-04-23] MEDS: HEPARIN 5,000 UNIT/1 ML VIAL SUB-Q SCH (09:22)
[2022-04-23] MEDS ORDERED: FOLIC ACID 1 MG TAB PO SCH (10:00)
[2022-04-23] MEDS ORDERED: LOSARTAN 50 MG TAB PO SCH (12:00)
--- NOTE | 2022-04-23 13:22 | Progress Note ---
Assessment and Plan - Patient Problems (1) Chest pain Current Visit: Yes Status: Acute Plan to address problem: Chest pain is atypical, serial cardiac enzymes are normal. His EKG is abnormal with chronic left bundle branch block. His COVID-19 test was positive, consistent with acute COVID infection as etiology of his symptoms of cough and chest tightness. (2) Paroxysmal atrial fibrillation Current Visit: Yes Status: Acute Plan to address problem: Patient is stable currently in sinus rhythm. Patient is reported on his outpatient records to be on long-term oral anticoagulation with Xarelto. Subjective Date of service: 04/23/22 Principal diagnosis: Cough, atypical chest pain Interval history: Patient is COVID-19 test is positive, suggesting acute COVID infection as etiology of his cough and chest tightness. Objective Vital Signs Temp Pulse Resp BP Pulse Ox 04/23/22 12:33 91 H 102/71 04/22/22 23:00 24 94 04/22/22 21:16 98.7 F 53 L 18 108/59 97 04/22/22 18:13 97.7 F 116 H 20 107/54 98 - Physical Examination HEENT: Positive: PERRL Neck: Positive: neck supple Cardiac: Positive: Irregularly Regular Lungs: Positive: Decreased Breath Sounds Neuro: Positive: Grossly Intact Abdomen: Positive: Soft Skin: Positive: Clear Extremities: Absent: edema - Imaging and Cardiology EKG: report reviewed (Sinus rhythm no acute ST-T wave changes)
[2022-04-23 14:05] VITALS: BP 129/65
[2022-04-23] MEDS ORDERED: INSULIN GLARGINE 100 UNITS/ML SUB-Q SCH (22:00)
[2022-04-23] MEDS ORDERED: AMIODARONE 200 MG TAB PO SCH (22:00)
[2022-04-24] MEDS ORDERED: FOLIC ACID 1 MG TAB PO SCH (10:00)
[2022-04-24] MEDS ORDERED: PRAVASTATIN 40 MG TAB PO SCH (22:00)
[2022-04-29] MEDS ORDERED: metHOTREXate 2.5 MG TAB (DOSE WEEKLY ONLY) PO SCH (10:00)
[2023-04-22] MEDS ORDERED: PIOGLITAZONE 15 MG TAB PO SCH (12:30)
== END 2022-04-23 17:59 | disposition home health service (06) | DRG 177 ==
LOC: ED 19:35 → 4A 04-21 20:21 → 3A 04-22 14:52
PROVIDERS: ADMIT Internal Medicine; ATTEND Internal Medicine
DX: U07.1 COVID-19 (principal); I50.43 Acute on chronic combined systolic (congestive) and diastolic (congestive) heart failure; N17.9 Acute kidney failure, unspecified; I11.0 Hypertensive heart disease with heart failure; I48.0 Paroxysmal atrial fibrillation; E11.9 Type 2 diabetes mellitus without complications; K21.9 Gastro-esophageal reflux disease without esophagitis; M06.9 Rheumatoid arthritis, unspecified; E78.5 Hyperlipidemia, unspecified; Z79.82 Long term (current) use of aspirin; Z79.01 Long term (current) use of anticoagulants; Z79.899 Other long term (current) drug therapy; Z88.0 Allergy status to penicillin
CPT/HCPCS: 36415; 71046; 80053; 82962; 83036; 83880; 84484; 85007; 85025; 87116; 93005; G0378; J3490; J1644; J1940; J8610; Q0161; U0003